=== PATIENT | male | born 1955 | race Caucasian/White ===

== ENCOUNTER → 2016-12-15 | Outpatient (CLI) | payer OTHER ==
[~2016-12-15] MED LIST: REGADENOSON 0.4 MG/5 ML SYR (LEXISCAN) IV ONE
--- NOTE | 2016-12-21 06:58 | ECHOCARDIOGRAPHY REPORT ---
DATE OF SERVICE: 12/15/2016 ECHOCARDIOGRAPHY CLINICAL DIAGNOSES: Shortness of breath, atrial fibrillation. MEASUREMENTS: LV diameter diastolic 5.4, IVS thickness, diastolic 1.2, LVPW thickness, diastolic 1.1. Aortic root 4, left atrium 5. DESCRIPTION: Two-dimensional echocardiography shows mild to moderate enlargement of the left atrium. Aortic root is at the top limit of normal to mildly enlarged. Global left ventricular systolic function is well preserved. Left ventricular ejection fraction is approximately 50 to 55%. No distinct regional wall motion abnormalities seen on this study. There is no Doppler evidence of any significant valvular stenosis. There appears to be trivial mitral and tricuspid regurgitation. Pulmonary artery systolic pressure could not be reliably estimated on this study. CONCLUSIONS: 1. Well preserved global left ventricular systolic function with an ejection fraction of 50 to 55%. 2. Mild to moderate enlargement of the left atrium. 3. Aortic root at the top limit of normal to mildly enlarged. 4. No evidence of any significant valvular stenosis. 5. There appears to be trivial mitral and tricuspid regurgitation. 6. Pulmonary artery systolic pressure could not be reliably estimated on this study. Job ID: [id number] DocumentID: [id number] Dictated Date: 12/20/2016 13:24:31 Salesforce Administrator Date: 12/20/2016 14:16:08 Dictated By: FELICITAS AGUILERA MD, MA, FACP, FACC,
== END ==
LOC: CARD 13:44 → EDUNIT# 15:00
PROVIDERS: ATTEND Internal Medicine Cardiovascular Disease
DX: I48.2 Chronic atrial fibrillation (principal); R06.02 Shortness of breath; I10 Essential (primary) hypertension; E78.4 Other hyperlipidemia; G47.33 Obstructive sleep apnea (adult) (pediatric); E66.09 Other obesity due to excess calories; Z87.891 Personal history of nicotine dependence
CPT/HCPCS: 93306

== ENCOUNTER → 2016-12-15 | Outpatient (CLI) | payer OTHER ==
--- NOTE | 2016-12-15 15:41 | Diagnostic Imaging Report ---
PROCEDURE: US Carotid Duplex Bilateral. TECHNIQUE: Multiple real-time grayscale images were obtained over the carotid arteries in various projections bilaterally. Additional duplex Doppler and color Doppler images were also obtained. INDICATION: Arrhythmia. History of atherosclerosis. FINDINGS: There is mild atherosclerotic plaquing noted within the carotid arteries bilaterally. There is noted slight increase in peak velocity along the distal internal carotid artery on the right which is quite tortuous and likely is artifactual. Waveforms and peak velocities are otherwise normal throughout both the external and internal carotid arteries with normal antegrade flow within both vertebral arteries. IMPRESSION: 1. Mild atherosclerotic plaquing noted. Increased velocity noted in the distal right internal carotid artery is felt to most likely be due to tortuosity. Dictated by: Dictated on workstation # [id number]
== END ==
LOC: RAD 13:40
PROVIDERS: ATTEND Nurse Practitioner Adult Health
DX: I49.9 Cardiac arrhythmia, unspecified (principal); I65.23 Occlusion and stenosis of bilateral carotid arteries
CPT/HCPCS: 93880

== ENCOUNTER 2016-12-19 12:03 | Outpatient (RCR) | payer OTHER ==
[~2016-12-19] VITALS: Ht 182.9 cm; Wt 154.2 kg
[~2016-12-19 12:03] MED LIST changes: +CATHETER FLUSH 10 ML SYR IV PRN; -REGADENOSON 0.4 MG/5 ML SYR (LEXISCAN) IV ONE
[2016-12-19] MEDS ORDERED: REGADENOSON 0.4 MG/5 ML SYR (LEXISCAN) IV ONE (12:30)
[2016-12-19 13:00] VITALS: BP 173/78
--- NOTE | 2016-12-20 12:47 | STRESS TEST ---
DATE OF SERVICE: 12/19/2016 RESTING AND POST REGADENOSON TECHNETIUM-99M TETROFOSMIN SPECT CT IMAGING ORDERING PHYSICIAN: Dr. Yang. CLINICAL DIAGNOSES: Shortness of breath, hypertension, hyperlipidemia, chronic atrial fibrillation. Baseline images were carried out after injection of 10.83 mCi of technetium-99m tetrofosmin. This was followed by 0.4 mg of regadenoson and 29.6 mCi of technetium-99m tetrofosmin for stress imaging. The electrocardiogram showed atrial fibrillation with a controlled ventricular response throughout the study. Occasional isolated premature ventricular contractions were seen. The patient tolerated the procedure well. The electrocardiogram did not change significantly with the regadenoson infusion. Review of images at rest and following stress does not indicate any significant perfusion defects consistent with significant myocardial ischemia or infarction. Gated images show normal global left ventricular systolic function with normal regional wall motion. Left ventricular ejection fraction is calculated to be 73%. Left ventricular end-diastolic volume is 138 mL. TID is absent (1.05). CONCLUSIONS: 1. No evidence of any significant myocardial ischemia or infarction on this study. 2. Normal regional wall motion. 3. Normal global left ventricular systolic function with a calculated ejection fraction of 73%. 4. Mild to moderate cardiomegaly. Job ID: [id number] DocumentID: [id number] Dictated Date: 12/20/2016 09:09:02 Radiology Assistant Date: 12/20/2016 11:48:31 Dictated By: FELICITAS YANG MD, MA, FACP, FACC,
== END 2017-03-19 | disposition home or self-care (01) ==
LOC: CARD 12:03
PROVIDERS: ATTEND Internal Medicine Cardiovascular Disease
DX: I48.2 Chronic atrial fibrillation (principal); R06.02 Shortness of breath; Z87.891 Personal history of nicotine dependence; E66.09 Other obesity due to excess calories; I10 Essential (primary) hypertension; E78.4 Other hyperlipidemia; G47.33 Obstructive sleep apnea (adult) (pediatric)
CPT/HCPCS: 78452; 93017; 93225; 93226

== ENCOUNTER 2016-12-22 09:06 | Outpatient (RCR) | payer OTHER | END 2017-03-22 | disposition home or self-care (01) | LOC: CARD 09:06 | PROVIDERS: ATTEND Internal Medicine Cardiovascular Disease | DX: I48.2 Chronic atrial fibrillation (principal); R06.02 Shortness of breath; I10 Essential (primary) hypertension; E78.4 Other hyperlipidemia; G47.33 Obstructive sleep apnea (adult) (pediatric); E66.09 Other obesity due to excess calories; Z87.891 Personal history of nicotine dependence ==

== ENCOUNTER → 2016-12-22 | Outpatient (CLI) | payer OTHER ==
[2016-12-22 09:18] LABS: BASOPHILS # (AUTO) 0.1 10^3/uL (0.0-0.1); BASOPHILS % (AUTO) 2 % (0-10); EOSINOPHILS # (AUTO) 0.5 10^3/uL (0.0-0.3); EOSINOPHILS % (AUTO) 6 % (0-10); LYMPHOCYTES % (AUTO) 27 % (12-44); MEAN CORPUSCULAR HEMOGLOBIN 29 PG (25-34); MEAN CORPUSCULAR HGB CONC 33 G/DL (32-36); MEAN CORPUSCULAR VOLUME 88 FL (80-99); MEAN PLATELET VOLUME 9.2 FL (7.4-10.4); MONOCYTES # (AUTO) 0.7 X 10^3 (0.0-1.0); MONOCYTES % (AUTO) 10 % (0-12); NEUTROPHILS # (AUTO) 4.3 X 10^3 (1.8-7.8); NEUTROPHILS % (AUTO) 57 % (42-75); PLATELET COUNT 255 10^3/uL (130-400); RED BLOOD COUNT 4.96 10^6/uL (4.35-5.85); RED CELL DISTRIBUTION WIDTH 14.2 % (10.0-14.5); WHITE BLOOD COUNT 7.6 10^3/uL (4.3-11.0)
[2016-12-22 09:47] LABS: ALANINE AMINOTRANSFERASE 26 U/L (0-55); ANION GAP 11 MMOL/L (5-14); ASPARTATE AMINO TRANSFERASE 19 U/L (5-34); BLOOD UREA NITROGEN 18 MG/DL (7-18); BUN/CREATININE RATIO 17; CALCIUM 9.1 MG/DL (8.5-10.1); CARBON DIOXIDE 25 MMOL/L (21-32); CHLORIDE 106 MMOL/L (98-107); CHOLESTEROL 172 MG/DL (< 200); CREATININE SERUM 1.05 MG/DL (0.60-1.30); DIRECT LDL 121 MG/DL (1-129); GFR ESTIMATED > 60; GLUCOSE 108 MG/DL (70-105); POTASSIUM 3.9 MMOL/L (3.6-5.0); SODIUM 142 MMOL/L (135-145); TOTAL PROTEIN 6.4 G/DL (6.4-8.2); TRIGLYCERIDES 84 MG/DL (<150); VLDL CHOLESTEROL 17 MG/DL (5-40)
[2016-12-22 10:06] LABS: THYROID STIMULATING HORMONE 1.55 UIU/ML (0.35-4.94)
[2016-12-22 10:35] LABS: ERYTHROCYTE SEDIMENTATION RATE 48 MM/HR (0-30)
== END ==
LOC: LAB 09:03
PROVIDERS: ATTEND Internal Medicine Cardiovascular Disease
DX: I48.2 Chronic atrial fibrillation (principal); R06.02 Shortness of breath; I10 Essential (primary) hypertension; E78.4 Other hyperlipidemia; G47.33 Obstructive sleep apnea (adult) (pediatric); E66.09 Other obesity due to excess calories; Z87.891 Personal history of nicotine dependence
CPT/HCPCS: 36415; 80053; 80061; 83735; 84443; 85025; 85652

== ENCOUNTER → 2018-03-22 | Outpatient (CLI) | payer OTHER ==
--- NOTE | 2018-03-22 11:14 | Diagnostic Imaging Report ---
INDICATION: Left-sided chest pain, history of atrial fibrillation. PA and lateral chest obtained at 11:12 a.m. FINDINGS: Heart is borderline enlarged. Mediastinal silhouette is unremarkable. The lungs are clear. There is no pneumothorax or pleural fluid. IMPRESSION: Borderline cardiomegaly with no acute process in the chest. Dictated by: Dictated on workstation # [id number]
== END ==
LOC: RAD 10:36
PROVIDERS: ATTEND Nurse Practitioner Adult Health
DX: R07.9 Chest pain, unspecified (principal); Z86.79 Personal history of other diseases of the circulatory system
CPT/HCPCS: 71046

== ENCOUNTER → 2020-11-23 | Outpatient (CLI) | payer OTHER ==
[~2020-11-23] MED LIST changes: +HOLD METFORMIN - RECEIVED CONTRAST 20 ML VIAL IV SCH; +IOHEXOL 350 MG/ML 100 ML (OMNIPAQUE 350) VIAL IV ONE; +NS 100 ML (IVPB) BAG IV ONE
--- NOTE | 2020-11-23 13:03 | Diagnostic Imaging Report ---
PROCEDURE: CT abdomen with contrast only. TECHNIQUE: Multiple contiguous axial images were obtained through the abdomen after the administration of intravenous contrast. Auto Exposure Controls were utilized during the CT exam to meet ALARA standards for radiation dose reduction. INDICATION: Right upper quadrant pain. COMPARISON: None available. FINDINGS: Mild bibasilar atelectasis versus minimal interstitial lung changes. Diffusely decreased density throughout the liver, related to fatty infiltration of the liver. No focal hepatic mass. Elevation of the right hemidiaphragm. The heart is mildly enlarged. No significant pericardial effusion. No basilar pleural effusion. The spleen is unremarkable. The adrenal glands are unremarkable. The pancreas is unremarkable. 1.1 cm hypodensity within the mid right kidney. Additional 1.1 cm hypodensity within the central aspect of the superior pole of the right kidney. 1.0 cm hypodensity associated with the mid left kidney. No evidence of hydroureteronephrosis. Moderate vascular calcifications with the abdominal aorta and its branch vessels without aneurysmal dilatation within the [id number]. Small fat-containing umbilical hernia. No bowel obstruction within the [id number]. Cholelithiasis. No significant inflammatory stranding about the gallbladder. No significant adenopathy, free air, or free fluid in abdomen. Scattered osseous degenerative changes without acute osseous abnormality. There does appear to be multilevel central canal and neural foraminal stenosis within the lower lumbar spine. IMPRESSION: Cholelithiasis. Fatty infiltration of the liver. Small bilateral renal hypodensities, too small to completely characterize. Statistically, these likely relate to cysts. Additional findings as above. Dictated by: Dictated on workstation # [id number]
== END ==
LOC: RAD 11:17
PROVIDERS: ATTEND Nurse Practitioner Adult Health
DX: K76.0 Fatty (change of) liver, not elsewhere classified (principal); K80.20 Calculus of gallbladder without cholecystitis without obstruction
CPT/HCPCS: 74160

== ENCOUNTER → 2021-12-30 | Outpatient (CLI) | payer OTHER ==
[~2021-12-30] VITALS: Ht 182 cm; Wt 174.0 kg
[~2021-12-30] MED LIST changes: -CATHETER FLUSH 10 ML SYR IV PRN; -HOLD METFORMIN - RECEIVED CONTRAST 20 ML VIAL IV SCH; -IOHEXOL 350 MG/ML 100 ML (OMNIPAQUE 350) VIAL IV ONE; -NS 100 ML (IVPB) BAG IV ONE; +REGADENOSON 0.4 MG/5 ML SYR (LEXISCAN) IV ONE
[2021-12-30] MEDS: CATHETER FLUSH 10 ML SYR IVP PRN ×2 (08:12→09:09)
[2021-12-30 09:08] VITALS: BP 252/96
== END ==
LOC: CARD 08:00
PROVIDERS: ATTEND Internal Medicine Cardiovascular Disease
DX: R06.09 Other forms of dyspnea (principal)
CPT/HCPCS: 78452; 93017

== ENCOUNTER → 2021-12-30 | Outpatient (CLI) | payer OTHER ==
--- NOTE | 2021-12-30 08:53 | Diagnostic Imaging Report ---
PROCEDURE: US Gallbladder. INDICATION: GALLSTONES TECHNIQUE: Multiple grayscale sonographic images were obtained of the right upper quadrant of the abdomen. CORRELATION STUDY: None FINDINGS: LIVER: There is uniform echotexture within the visualized portions of the liver. The main portal vein is patent and with normal direction of flow. Liver borderline enlarged at 19.1 cm. GALLBLADDER: The gallbladder demonstrates no definitive shadowing gallstones, abnormal gallbladder wall thickening or pericholecystic fluid. COMMON BILE DUCT: Obscured. No overt bile duct dilatation. AORTA/IVC: Obscured by overlying bowel gas. PANCREAS: Obscured by overlying bowel gas. RIGHT KIDNEY: 11.4 x 6.7 x 6.0 cm. No hydronephrosis. OTHER: No significant right upper quadrant ascites. Overall assessment is markedly limited on this study owing to patient's body habitus and overlying bowel gas. IMPRESSION: 1. Borderline hepatomegaly. 2. No definitive evidence for gallstones. Dictated by: Dictated on workstation # [id number]
== END ==
LOC: RAD 07:18
PROVIDERS: ATTEND Nurse Practitioner Adult Health
DX: K80.12 Calculus of gallbladder with acute and chronic cholecystitis without obstruction (principal)
CPT/HCPCS: 76705

== ENCOUNTER → 2022-01-20 | Outpatient (CLI) | payer OTHER | LOC: CARD 11:00 | PROVIDERS: ATTEND Internal Medicine Cardiovascular Disease | DX: I51.7 Cardiomegaly (principal) | CPT/HCPCS: 93306 ==